=== PATIENT | female | born 1950 | race Caucasian/White ===

== ENCOUNTER 2023-12-14 09:02 | Day surgery (SDC) | payer MEDICARE ==
[2023-12-14] VITALS (12 sets, daily range): BP systolic 59–158; BP diastolic 59–97; PULSE 72–97; TEMP 97.5–97.9
[~2023-12-14] VITALS: Ht 167.6 cm; Wt 72.7 kg
[~2023-12-14 09:02] MED LIST: ALTACE 10MG TAB10 MG PO; ASPIRIN 81M81 MG/TA2 PO; CENTRUM SILVER1 TAB PO; GLUCOPHAGE500 MG/TAB PO; GLUCOTROL 5M5 MG/TAB PO; IMDUR 30MG30 MG/TAB PO; LEVOXYL0.05 MG PO; LIPITOR 80MG80 MG PO; MAGNESIUM250 M1 PO; MIRALAX PA17 GM/Dose PO; MOTRIN 200200 MG/TAB PO; NORVASC 5MG5 MG/TAB PO; PLAVIX 75MG TAB75 MG PO; PRINIVIL20 MG PO; ROXICODONE 55 MG/TAB PO; SOOTHE XP 1%-41 EACH OP; TYLENOL 325MG325 MG PO; ZIAC 2.5/6.25MG1 TAB PO
[2023-12-14 10:07] LABS: HEMATOCRIT 36.4 % (37.0-47.0); HEMOGLOBIN 12.5 g/dl (12.5-16.0); INR 1.1 (0.8-3.0); MEAN CELL VOLUME 87 fl (80.0-100.0); MEAN CORPUSCULAR HEMOGLOBIN 30 pg (27-31); MEAN CORPUSCULAR HGB CONC 34 g/dl (33.0-37.0); MEAN PLATELET VOLUME 10.2 fl (7.4-10.4); PLATELET COUNT 255 K/mm3 (130-400); PROTHROMBIN TIME 11.9 SECONDS (9.7-12.8); RED BLOOD COUNT 4.17 M/mm3 (4.10-5.30); REDCELL DISTRIBUTION WIDTH-CV 13.2 % (11.5-14.5)
[2023-12-14 10:10] LABS: PARTIAL THROMBOPLASTIN TIME 26.6 SECONDS (26.0-37.0)
[2023-12-14] MEDS ORDERED: 1/2 NS 1,000 ML IV SCH ×2 (10:15→14:00)
[2023-12-14 10:22] LABS: CALCIUM 9.3 mg/dL (8.4-10.2); CREATININE, serum 0.81 mg/dL (0.57-1.11); POTASSIUM 4.4 mEq/L (3.5-4.5)
--- NOTE | 2023-12-14 12:02 | NUR ---
SEE MERGE FOR PROCEDURE DOCUMENTATION
[2023-12-14] MEDS ORDERED: Bivalirudin 250 MG in NS 50 ML IV SCH (12:26)
[2023-12-14] MEDS ORDERED: Heparin 1,000 UNITS/ML 10 ML Multi-Dose VIAL IV SCH (12:30)
[2023-12-14] MEDS ORDERED: Midazolam 2 MG/2 ML VIAL IV SCH (12:31)
[2023-12-14] MEDS ORDERED: Verapamil 2.5 MG/ML 2 ML VIAL IA SCH (12:32)
[2023-12-14] MEDS ORDERED: Nitroglycerin 100 MCG/ML (Cath Lab) 10 ML VIAL IA SCH (12:34)
[2023-12-14] MEDS ORDERED: fentaNYL 50 MCG/ML 2 ML VIAL IV SCH (12:36)
[2023-12-14] MEDS ORDERED: Clopidogrel 300 MG DOSE (75 mg x 4 tabs) PO SCH (13:02)
[2023-12-14] MEDS ORDERED: Iohexol 350 - 100 ML VIAL INCOR ONE (13:10)
[2023-12-14] MEDS ORDERED: Polyethylene Glycol 3350 17 GM PDS PO PRN (13:15)
[2023-12-14] MEDS ORDERED: Bisacodyl 5 MG TAB PO PRN (13:15)
[2023-12-14] MEDS ORDERED: Heparin 1,000 UNITS/ML 10 ML Multi-Dose VIAL IA SCH (13:17)
--- NOTE | 2023-12-14 13:35 | NUR ---
PATIENT ARIVED AWAKE AND ALERT, LAYING IN BED FROM PACU. PATIENTS VSS, POST OP VITALS INTIATED. RRADIAL CATH SITE CDI, TR BAND INFALTED TO 18CC PER REPORT. CALL LGITH WITHIN REACH, PATINET ORIENTED TO ROOM .
--- NOTE | 2023-12-14 13:37 | NUR ---
PATIENT ALERT AND ORIENTED, VSS. PATIENT TRANSFERRED TO BED VIA SLIDE, POSITIONED FOR COMFORT. RIGHT RADIAL SITE ASSESSED, 3 ML AIR ADDED TO SITE AND CLEANED WITH Q-TIPS PER CRIS SANCHEZ. TRANSFER OF CARE REPORT TO CRIS LIGHT. PATIENT TRANSPORTED VIA BED AND SALES SUPERVISOR TO [facility]. VITAL SIGNS TAKEN, VSS. PATIENT DENIES PAIN OR NAUSEA. RADIAL SITE ELEVATED ON PILLOW AND ASSESSED, REMAINS CDI. BED IN LOWEST POSITION, CALL LIGHT WITHIN REACH, X3 BEDRAILS IN PLACE.
[2023-12-14] MEDS ORDERED: Ondansetron 4 MG/2 ML VIAL IV PRN (14:00)
[2023-12-14] MEDS ORDERED: Acetaminophen 325 MG TAB PO PRN (14:00)
[2023-12-14] MEDS ORDERED: oxyCODONE 5 MG TAB PO PRN (14:00)
[2023-12-14] MEDS ORDERED: Magnes Hydrox (MOM) 80 MG/ML 30 ML CUP PO PRN (14:00)
[2023-12-14] MEDS ORDERED: Dextrose 50% Water 25 GM/50 ML SYRINGE IV PRN (14:15)
[2023-12-14] MEDS ORDERED: Glucagon 1 MG VIAL IM PRN (14:15)
[2023-12-14] MEDS ORDERED: Dextrose (Glucose) 15 GM (4 x 3.75 GM) Chewable TABLET PACK PO PRN (14:15)
--- NOTE | 2023-12-14 14:30 | NUR ---
PATIENT INFORMED RN SHE FEELS THOUGH R THUMB IS TINGLING. CAP REFILL TO R HAND/FINGERS SLIGHTLY SLUGGISH. ONLY 1 HOUR POST CATH AND TOO SOON PER PROTOCOL TO RELEASE AIR FORM TR BAND. CARDIOLOGY NOTIFIED AND INSTRUCTED THIS RN TO REMOVE 1-2CC OF AIR FROM PATIENTS TR BAND. 2 CC REMOVED FROM TR BAND- NO BLEEDING NOTIFIED AT THE CATH SITE. PATIENTS CALL LIGHT WTIHIN REACH.
[2023-12-14] MEDS ORDERED: Clopidogrel 75 MG TAB PO SCH (21:00)
[2023-12-14] MEDS ORDERED: Melatonin 3 MG TAB PO PRN (21:00)
--- NOTE | 2023-12-14 22:03 | NUR ---
patient lying in bed, alert and oriented x4. pt denies chest pain and shortness of breath. upon medication administration pt reports the recent medications she's been started on (lipitor, imdur, plavix, ramipril) have been giving her changes in her vision with some blurriness, pt educated of purposes and side effects of medications being given, pt accepting of education and accepts one of her evening meds, refuses lipitor at this time. IV in LAC is patent, site is clean dry and intact. small scattered bruising noted on extremities, right radial site with small soft bruising, TR band 3ml air released at 1950, site intact. pt has no further needs, questions, or concerns at this time. using call light appropriately, ambulating with steady gait and home walker. call light within reach. will continue to monitor.
[2023-12-15 01:10] VITALS: BP_SYST 132
[2023-12-15 03:46] VITALS: BP 131/81; PULSE 76; TEMP 98
[2023-12-15 04:25] VITALS: BP_SYST 131
[2023-12-15 06:30] LABS: BASO # 0.1 K/mm3 (0.0-0.2); BASO % 1.5 % (0.0-2.0); EOS # 0.3 K/mm3 (0.0-0.7); EOS % 4.1 % (0.0-4.0); GRAN # 4.5 K/mm3 (1.4-6.5); GRAN % 67.4 % (42.2-75.2); HEMOGLOBIN 11.6 g/dl (12.5-16.0); LYMPH # 1.2 K/mm3 (1.2-3.4); LYMPH % 17.9 % (20.0-51.0); MEAN CELL VOLUME 88 fl (80.0-100.0); MEAN CORPUSCULAR HEMOGLOBIN 30 pg (27-31); MEAN CORPUSCULAR HGB CONC 34 g/dl (33.0-37.0); MEAN PLATELET VOLUME 10.3 fl (7.4-10.4); MONO # 0.6 K/mm3 (0.1-0.6); MONO % 8.9 % (1.7-9.3); PLATELET COUNT 226 K/mm3 (130-400); REDCELL DISTRIBUTION WIDTH-CV 13.2 % (11.5-14.5)
[2023-12-15 06:34] LABS: HEMATOCRIT 34.2 % (37.0-47.0)
[2023-12-15 06:50] LABS: CALCIUM 8.9 mg/dL (8.4-10.2); CREATININE, serum 0.81 mg/dL (0.57-1.11); POTASSIUM 4.3 mEq/L (3.5-4.5)
[2023-12-15] MEDS ORDERED: Isosorbide Mononitrate CR (24-HR) 30 MG TAB PO SCH (07:00)
[2023-12-15 07:13] VITALS: BP 128/79; PULSE 73; TEMP 97.9
[2023-12-15 08:04] VITALS: BP_SYST 128
[2023-12-15] MEDS ORDERED: glipiZIDE 5 MG TAB PO SCH (09:00)
[2023-12-15] MEDS ORDERED: Magnesium Gluconate 500 MG TAB PO SCH (09:00)
[2023-12-15] MEDS ORDERED: amLODIPine 5 MG TAB PO SCH (09:00)
--- NOTE | 2023-12-15 09:34 | NUR ---
Initial visit; Patient thanked Momd Teacher for looking in on her and offering God's blessings and for keeping her in Momd Teacher's prayers.
--- NOTE | 2023-12-15 10:09 | NUR ---
Reviewed risk factors for heart disease. Covered applicable modifiable risk factors including the following: tobacco cessation, HTN, hyperlipidemia, diabetes, overweight/obesity, sedentary lifestyle, and stress/depression. Patient verbalized understanding. Discussed phase 2 cardiac rehab program and informed patient that cardiac rehab is available in [place] where she lives. Cardiac rehab referral faxed to [facility] with patient's permission.
--- NOTE | 2023-12-15 10:28 | NUR ---
patient discharge instructions given. patient expresses understanding when asked if she has any more questions. patient iv removed and instructed to let this nurse know when her ride gets here. call light within reach. bed at lowest position.
--- NOTE | 2023-12-15 10:47 | NUR ---
skip pit worker met with pt to discuss discharge planning. Pt reports she lives alone in [place]. She sees Dr. Shemar Briones and obtains medications from [facility] with no difficulties. She is independent with ADLS and uses a rolator for DME. She created a DPO[employer]-[facility] listing her friend, Lisset [phone]. ANGELINA and ANGELINA Ayala witnessed signature and provided copies and original. Copy in the chart. Pt intends to return home today. ANGELINA spoke with CRIS Bond who reports no concerns with mobility and states pt is only a SBA for using her standing rolator. Discharge Plan: home
--- NOTE | 2023-12-15 11:22 | NUR ---
patient escorted out by via [facility] staff to transportation to patient home.
== END 2023-12-15 11:22 | disposition home or self-care (01) ==
LOC: COL.CAR 09:02 → MEDICAL 13:45 → COL.CAR 12-15 11:22
PROVIDERS: Internal Medicine Cardiovascular Disease
DX: I25.10 Atherosclerotic heart disease of native coronary artery without angina pectoris (principal); I25.5 Ischemic cardiomyopathy; Z95.5 Presence of coronary angioplasty implant and graft; Z87.442 Personal history of urinary calculi
CPT/HCPCS: OP; C1725; C1761; C1769; C1874; C1887; C9600; J0583; J1644; J2250; J3010; Q9967